=== PATIENT | male | born 1985 | race Two or more races ===

== ENCOUNTER 2021-06-27 16:53 | Emergency (ER) | payer SELFPAY ==
[2021-06-27] MEDS ORDERED: Lidocaine 1% with EPINEPHrine 1:100,000 20 ML MDV INJECT ONE (17:22)
[2021-06-27] MEDS ORDERED: Diphtheria,Pertussis(Acell),Tetanus Vaccine 0.5 ML Syringe IM ONE (17:23)
--- NOTE | 2021-06-27 17:23 | EDM.PDOC ---
ED HPI GENERAL MEDICAL PROBLEM - General Chief Complaint: Laceration Stated Complaint: LACERATION ON RT HAND Time Seen by Provider: 06/27/21 16:57 Source of Information: Reports: Patient History Limitations: Reports: No Limitations - History of Present Illness INITIAL COMMENTS - FREE TEXT/NARRATIVE: 36-year-old male presents for swelling and pain to right hand. Patient notes t hat he got a splinter while working on the dorsal aspect of his right hand near his thumb. This was 5 days ago. He has since noted worsening swelling and pain to the area, redness. Denies any systemic symptoms of fever. No recent antibiotic use. Right Hand Pain Score (Numeric/FACES): 9 - Related Data Allergies Allergy/AdvReac Type Severity Reaction Status Date / Time No Known Allergies Allergy Verified 06/27/21 17:19 Home Meds: Home Meds Acetaminophen/oxyCODONE [Percocet 325-5 MG] 1 each PO Q4H PRN #18 tab 06/27/21 [Rx] Sulfamethoxazole/Trimethoprim [Bactrim Ds Tablet] 1 each PO BID #14 tablet 06/27/21 [Rx] cephALEXin [Keflex] 500 mg PO Q8H #21 cap 06/27/21 [Rx] ED ROS GENERAL - Review of Systems Review Of Systems: Comprehensive ROS is negative, except as noted in HPI. ED EXAM, SKIN/RASH Exam: See Below Exam Limited By: No Limitations General Appearance: Alert, WD/WN, No Apparent Distress Ears: Hearing Grossly Normal Throat/Mouth: Normal Voice, No Airway Compromise Head: Atraumatic, Normocephalic Respiratory/Chest: No Respiratory Distress, No Accessory Muscle Use Cardiovascular: Normal Peripheral Pulses Extremities: Other (swelling/redness/fluctuance/TTP of R hand dorsal thenar eminence ) Neurological: Alert, Normal Cognition, Normal Gait Psychiatric: Normal Affect, Normal Mood Skin: Warm, Dry, Intact, Normal Color ED SKIN PROCEDURES - I&D Site: R hand Skin Prep: Isopropyl Alcohol (Alcohol) Local Anesthesia: Lidocaine: 1% with EPI Local Anesthetic Volume: Other (10) Area Incised With: 11 Blade Drainage: Purulent Probed to Break Up Loculations: Yes Packed With: 1/4 in. Iodoform Sterile Dressing: Adhesive Dressing Complications: No Course - Vital Signs Last Recorded V/S: Last Vital Signs Temp 98.7 F 06/27/21 17:17 Pulse 72 06/27/21 17:17 Resp 18 06/27/21 17:17 BP 128/70 06/27/21 17:17 Pulse Ox 100 06/27/21 17:17 - Orders/Labs/Meds Orders: Active Orders 24 hr Category Date Time Status Vaccines to be Administered [RC] PER UNIT ROUTINE Care 06/27/21 17:23 Active Hand 2V Rt [CR] Stat Exams 06/27/21 17:21 Taken Meds: Medications Discontinued Medications Generic Name Dose Route Start Last Admin Trade Name Freq PRN Reason Stop Dose Admin Diphtheria/Tetanus/Acell Pertussis 0.5 ml 06/27/21 17:23 06/27/21 17:31 Diphtheria,Pertussis(Acell),Tetanus Vaccine 0.5 Ml Syringe IM 06/27/21 17:24 0.5 ml .ONCE ONE Administration Lidocaine/Epinephrine 20 ml 06/27/21 17:22 06/27/21 17:31 Lidocaine 1% With Epinephrine 1:100,000 20 Ml Mdv INJECT 06/27/21 17:23 20 ml ONETIME ONE Administration - Re-Assessments/Exams Free Text/Narrative Re-Assessment/Exam: 06/27/21 17:24 Large abscess of R hand; will get XR to ensure no FB or bony involvement. Will update Tdap. Will I&D the abscess 06/27/21 17:55 No foreign bodies noted on x-ray imaging, large amount of soft tissue swelling, the abscess was drained as noted in procedure note. Will discharge patient with Keflex and Bactrim. Return precautions were discussed. Departure - Departure Time of Disposition: 17:55 Disposition: Home, Self-Care 01 Condition: Good Clinical Impression: Abscess of hand, right - Discharge Information Prescriptions: Sulfamethoxazole/Trimethoprim [Bactrim Ds Tablet] 1 each PO BID #14 tablet cephALEXin [Keflex] 500 mg PO Q8H #21 cap Acetaminophen/oxyCODONE [Percocet 325-5 MG] 1 each PO Q4H PRN #18 tab PRN Reason: Pain Instructions: Skin Abscess Referrals: PCP,None [Primary Care Provider] - Forms: ED Department Discharge Additional Instructions: I sent antibiotics and pain medication to the [facility] which is in the [email or web address]. Please return for wound reassessment in 2 days so we can remove the packing. If you do not return for wound reassessment and please pull out the packing after 48 hours. If symptoms do not improve or certainly if they get worse then please come back to the emergency department so we can reassess. The following information is given to patients seen in the emergency department who are being discharged to home. This information is to outline your options for follow-up care. We provide all patients seen in our emergency department with a follow-up referral. The need for follow-up, as well as the timing and circumstances, are variable depending upon the specifics of your emergency department visit. If you don't have a primary care physician on staff, we will provide you with a referral. We always advise you to contact your personal physician following an emergency department visit to inform them of the circumstance of the visit and for follow-up with them and/or the need for any referrals to a consulting specialist. The emergency department will also refer you to a specialist when appropriate. This referral assures that you have the opportunity for follow-up care with a specialist. All of these measure are taken in an effort to provide you with optimal care, which includes your follow-up. Under all circumstances we always encourage you to contact your private physician who remains a resource for coordinating your care. When calling for follow-up care, please make the office aware that this follow-up is from your recent emergency room visit. If for any reason you are refused follow-up, please contact the [facility] Emergency Department at and asked to speak to the emergency department charge nurse. Please follow up with your primary care physician. If you do not have a primary care physician, see below: [facility] [address] [place] [id number] [facility] [address] [place] [id number] [facility] [address] [place] [id number] Sepsis Event Note (ED) - Focused Exam Vital Signs: Vital Signs Temp Pulse Resp BP Pulse Ox 06/27/21 17:17 98.7 F 72 18 128/70 100 - My Orders Last 24 Hours: My Active Orders 06/27/21 17:21 Hand 2V Rt [CR] Stat 06/27/21 17:23 Vaccines to be Administered [RC] PER UNIT ROUTINE - Assessment/Plan Last 24 Hours: My Active Orders 06/27/21 17:21 Hand 2V Rt [CR] Stat 06/27/21 17:23 Vaccines to be Administered [RC] PER UNIT ROUTINE
--- NOTE | 2021-06-27 18:08 | CR ---
INDICATION: Hand swelling, "SPLINTER". abscess, asses for foreign body TECHNIQUE: Hand radiograph 2 views right COMPARISON: None FINDINGS: Bone: No acute fractures or aggressive bone lesions are identified. Joint: The carpal and metacarpal-phalangeal joints are unremarkable in appearance. The interphalangeal joints are normal in appearance. Soft tissue: Soft tissue swelling is seen in the thenar eminence. No radiopaque foreign bodies are seen. IMPRESSION: 1. Soft tissue swelling is seen in the thenar eminence. No radiopaque foreign bodies are identified but radiolucent foreign bodies such as a wooden splinter cannot be assessed by radiography. Dictated by Giovanny West MD @ 06/27/2021 6:06:57 PM Dictated by: Giovanny West MD @ 06/27/2021 18:07:03 (Electronically Signed)
== END 2021-06-27 18:14 | disposition home or self-care (01) ==
LOC: MW.ED 16:53
DX: L03.113 Cellulitis of right upper limb (principal); Z23 Encounter for immunization
CPT/HCPCS: 10060; 73120-26-RT; 73120-RT; 90471; 90715; 99283-25